=== PATIENT | female | born 1985 | race Caucasian/White ===

== ENCOUNTER 2016-12-26 15:19 | Emergency (ER) | payer BC ==
[2016-12-26 16:05] VITALS: BP 119/70
--- NOTE | 2016-12-26 16:30 | UC ---
Skin Complaint HPI - HPI Summary HPI Summary: TEN DAYS OF RIGHT SIDED FACIAL & SCALP SENSITIVITY. DIAGNOSED WITH SHINGLES WHEN SIMILAR EPISODE HAPPENED LAST YEAR, RESOLVED WITH ANTIVIRALS. NO RASH. HOWEVER, SENSITIVITY FOLLOWED COLD SORE WHICH RESOLVED. NO PRIMARY CARE PROVIDER. NO FACIAL DROOPING OR PARALYSIS. NO FEVER. - History of Current Complaint Chief Complaint: UCSkin Time Seen by Provider: 12/26/16 16:07 Stated Complaint: RIGHT SIDE OF FACE SENSITIVITY Hx Obtained From: Patient Hx Last Menstrual Period: 12/24/16 Onset/Duration: Gradual Onset, Lasting Weeks Skin Exposure Onset/Duration: Days Ago Onset Severity: Mild Current Severity: Mild Location: Discrete Aggravating Factor(s): Nothing Alleviating Factor(s): Nothing Associated Signs & Symptoms: Positive: Tenderness. Negative: Nausea, Vomiting, Numbness, Thirst, Diaphoresis, Weakness, Fever, Chills, Cough, Rash, Drainage, Bruising, Red Streaks - Allergy/Home Medications Allergies/Adverse Reactions: Allergies Allergy/AdvReac Type Severity Reaction Status Date / Time No Known Allergies Allergy Verified 12/26/16 15:58 Review of Systems Constitutional: Negative Skin: Other - RIGHT SIDED FACIAL/SCALP SENSITIVITY Eyes: Negative ENT: Negative Respiratory: Negative Cardiovascular: Negative Gastrointestinal: Negative Genitourinary: Negative Motor: Negative Neurovascular: Negative Musculoskeletal: Negative Neurological: Negative Psychological: Negative Is Patient Immunocompromised?: No All Other Systems Reviewed And Are Negative: Yes PMH/Surg Hx/FS Hx/Imm Hx Previously Healthy: Yes - Surgical History Surgical History: Yes Surgery Procedure, Year, and Place: T&A - Family History Known Family History: Negative: Diabetes - Social History Occupation: Employed Full-time Lives: With Family Alcohol Use: Weekly Alcohol Amount: 2-3 times a week Substance Use Type: None Smoking Status (MU): Never Smoked Tobacco Physical Exam Triage Information Reviewed: Yes Appearance: Well-Appearing, No Pain Distress, Well-Nourished Vital Signs: Initial Vital Signs Temp 98.3 F 12/26/16 15:59 Pulse 71 12/26/16 15:59 Resp 16 12/26/16 15:59 BP 119/70 12/26/16 15:59 Pulse Ox 100 12/26/16 15:59 Vital Signs Reviewed: Yes Eye Exam: Normal ENT Exam: Normal ENT: Positive: Normal ENT inspection, Hearing grossly normal, Pharynx normal, TM dull Dental Exam: Normal Neck: Positive: Supple, Nontender, Enlarged Nodes @ - MILD AT ANTERIOR CERVIAL CHAIN Respiratory Exam: Normal Respiratory: Positive: Chest non-tender, Lungs clear, Normal breath sounds, No respiratory distress, No accessory muscle use Cardiovascular Exam: Normal Cardiovascular: Positive: RRR, No Murmur, Pulses Normal Abdominal Exam: Normal Abdomen Description: Positive: Nontender, No Organomegaly Musculoskeletal Exam: Normal Musculoskeletal: Positive: Strength Intact, ROM Intact Neurological Exam: Normal Psychological Exam: Normal Skin Exam: Normal Course/Dx - Differential Diagnoses - Skin Complaint Differential Diagnoses: Cellulitis, Impetigo, Varicella Zoster, Other - BELLS PALSY - Diagnoses Provider Diagnoses: HERPES ZOSTER Discharge - Discharge Plan Condition: Stable Disposition: HOME Prescriptions: Famciclovir [Famvir] 500 mg PO TID #21 tab Patient Education Materials: Shingles (ED) Referrals: [facility] [place] [facility] [Outside] No Primary Care Phys,NOPCP [Primary Care Provider] -
== END 2016-12-26 16:39 | disposition home or self-care (01) ==
LOC: UCCORT 15:19
DX: B02.9 Zoster without complications (principal)
CPT/HCPCS: 99211; G0463

== ENCOUNTER 2017-06-24 08:38 | Emergency (ER) | payer BC ==
[2017-06-24 08:56] VITALS: BP 121/80
--- NOTE | 2017-06-24 09:18 | UC ---
Dizzy HPI HPI Summary: Pt c/o sudden onset of "dizziness" 3 days. ago. Pt states that she was bending over to pet dog and stood up quickly and felt dizzy, nauseous, reports symptoms resolved but returned upon waking in the morning the next day. Pt denies injury , trauma, or recent illness. Denies possibility of . Has hx of hyponatremia. Pt states that she feels that her "brain is foggy" and that she feels constantly nauseous. - History Of Current Complaint Chief Complaint: UCDizziness Stated Complaint: DIZZINESS X 3 DAYS Time Seen by Provider: 06/24/17 09:01 Hx Obtained From: Patient Hx Last Menstrual Period: 06/09/17 ?: No Onset/Duration: Sudden Onset, Lasting Days, Still Present Timing: Constant Severity Initially: Mild Severity Currently: Mild Pain Intensity: 0 Character: Room Spinning, Dizzy Aggravating Factor(s): Position Change Alleviating Factor(s): Rest Associated Signs And Symptoms: Positive: Nausea - Risk Factors Cardiac Risk Factors: Negative CVA Risk Factor: Oral Contraceptives - Allergies/Home Medications Allergies/Adverse Reactions: Allergies Allergy/AdvReac Type Severity Reaction Status Date / Time No Known Allergies Allergy Verified 12/26/16 15:58 Home Medications: Home Medications Norgestimate-Ethinyl Estradiol [Ortho-Cyclen 28 Tablet] 1 each PO DAILY [History Confirmed 06/24/17] PMH/Surg Hx/FS Hx/Imm Hx Previously Healthy: Yes Endocrine History: Other - hx of hyponatremia Other Endocrine History: hyponatremia - Surgical History Surgical History: Yes Surgery Procedure, Year, and Place: T&A - Family History Known Family History: Negative: Diabetes - Social History Occupation: Employed Full-time Lives: With Family Alcohol Use: Weekly Alcohol Amount: 2-3 times a week Substance Use Type: None Smoking Status (MU): Never Smoked Tobacco Have You Smoked in the Last Year: No Review of Systems Constitutional: Negative Skin: Negative Eyes: Negative ENT: Negative Respiratory: Negative Cardiovascular: Negative Gastrointestinal: Negative Genitourinary: Negative Motor: Negative Neurovascular: Negative Musculoskeletal: Negative Neurological: Other - dizziness Psychological: Negative Is Patient Immunocompromised?: No All Other Systems Reviewed And Are Negative: Yes Physical Exam Triage Information Reviewed: Yes Appearance: Well-Appearing Vital Signs: Initial Vital Signs Temp 97.6 F 06/24/17 08:49 Pulse 92 04/30/18 08:49 Resp 16 06/24/17 08:49 BP 121/80 06/24/17 08:49 Pulse Ox 100 06/24/17 08:49 Vital Signs Reviewed: Yes Eye Exam: Normal Eyes: Positive: Other: - PERRLA ENT Exam: Normal ENT: Positive: TM bulging - left Dental Exam: Normal Neck exam: Normal Respiratory Exam: Normal Cardiovascular Exam: Normal Musculoskeletal Exam: Normal Neurological Exam: Normal Psychological Exam: Normal Skin Exam: Normal Dizzy Course/Dx - Differential Dx/Diagnosis Differential Diagnosis/HQI/PQRI: Benign Paroxysmal Positional Vertigo, Labyrinthitis, Vasovagal Reaction Provider Diagnoses: dizziness Discharge - Sign-Out/Discharge Documenting (check all that apply): Discharge/Admit/Transfer - Discharge Plan Condition: Stable Disposition: HOME Prescriptions: Meclizine TAB* [Antivert 12.5 TAB*] 12.5 mg PO TID PRN #12 tab PRN Reason: Dizziness predniSONE TAB* [Deltasone TAB*] 30 mg PO DAILY #9 tab Patient Education Materials: Dizziness (ED) Forms: *Work Release Referrals: [facility] [place] [facility] [Outside] No Primary Care Phys,NOPCP [Primary Care Provider] - Additional Instructions: Please establish care with a PCP as soon possible. Please note that if your symptoms worsen, please seek care as soon as possible. - Billing Disposition and Condition Condition: STABLE Disposition: HOME
--- NOTE | 2017-06-25 10:52 | UC ---
- Progress Note Progress Note: RN to call pt. Recommend and encourage go to the Emergency Department today re very low potassium (2.9) on 06/24/17. Also if she has a PCP, encourage schedule follow up accordingly. Discharge - Sign-Out/Discharge Documenting (check all that apply): Post-Discharge Follow Up - Discharge Plan Condition: Stable Disposition: HOME Prescriptions: Meclizine TAB* [Antivert 12.5 TAB*] 12.5 mg PO TID PRN #12 tab PRN Reason: Dizziness predniSONE TAB* [Deltasone TAB*] 30 mg PO DAILY #9 tab Patient Education Materials: Dizziness (ED) Forms: *Work Release Referrals: [facility] [place] [facility] [Outside] No Primary Care Phys,NOPCP [Primary Care Provider] - Additional Instructions: Please establish care with a PCP as soon possible. Please note that if your symptoms worsen, please seek care as soon as possible. - Billing Disposition and Condition Condition: STABLE Disposition: HOME
== END 2017-06-24 09:59 | disposition home or self-care (01) ==
LOC: UCCORT 08:38
DX: R42 Dizziness and giddiness (principal)
CPT/HCPCS: 36415; 80053; 84702; 99212; G0463